=== PATIENT | male | born 1950 | race Caucasian/White ===

== ENCOUNTER 2024-04-24 08:11 | Day surgery (SDC) | payer MEDICARE, OTHER ==
[2024-04-24] VITALS (11 sets, daily range): BP systolic 125–147; BP diastolic 62–93
[~2024-04-24] VITALS: Ht 182.9 cm; Wt 124.0 kg
[~2024-04-24 08:11] MED LIST: ALLO100 PO; ATOR40TA PO; Aspir 8181 MG PO; CLOP75 PO; COLCHICINE0.6 MG PO; DYAZIDE 37.5-21 EACH PO; LEVSOD25 PO; LISI5 PO; SOTO80 PO
[2024-04-24] MEDS ORDERED: NS 250 ML IV ONE (08:41)
[2024-04-24] MEDS ORDERED: Heparin Sodium 1000 Units/ML 10ML MDV ONE ×2 (08:42→09:08)
[2024-04-24] MEDS ORDERED: NS 500 ML IV ONE (08:42)
[2024-04-24] MEDS ORDERED: NS 1,000 ML IV ONE ×2 (08:42→09:02)
[2024-04-24] MEDS ORDERED: Nitroglycerin 2 MG/20 ML BTL ONE (08:43)
[2024-04-24] MEDS ORDERED: Midazolam HCl 1MG / ML 2ML Vial ONE ×2 (09:01→10:55)
[2024-04-24] MEDS ORDERED: FentaNYL Citrate 50 MCG/ML 2 ML Injection ONE ×2 (09:02→10:55)
[2024-04-24 09:06] LABS: BASOPHILS ABSOLUTE AUTO 0.03 K/mm3 (0.00-0.23); BASOPHILS PERCENT AUTO 0 % (0-2); EOSINOPHILS ABSOLUTE AUTO 0.13 K/mm3 (0.00-0.68); EOSINOPHILS PERCENT AUTO 1 % (0-6); Hematocrit 33.7 % (37.0-53.0); Hemoglobin 11.6 g/dL (13.5-17.5); IMMATURE GRAN ABSOLUTE AUTO 0.06 K/mm3 (0.00-0.10); IMMATURE GRAN PERCENT AUTO 1 % (0-1); LYMPHOCYTES ABSOLUTE AUTO 2.04 K/mm3 (0.84-5.20); LYMPHOCYTES PERCENT AUTO 20 % (21-46); MONOCYTES ABSOLUTE AUTO 0.98 K/mm3 (0.16-1.47); MONOCYTES PERCENT AUTO 10 % (4-13); Mean Corpuscular HGB 29.7 pg (26.0-34.0); Mean Corpuscular HGB Conc 34.4 g/dL (31.5-36.5); Mean Corpuscular Volume 86 fL (80-100); Mean Platelet Volume 10.4 fL (9.1-12.4); NEUTROPHILS ABSOLUTE AUTO 7.01 K/mm3 (1.96-9.15); NEUTROPHILS PERCENT AUTO 68 % (41-73); Platelet Count 200 K/mm3 (150-400); RDW Coefficient Variation 15.1 % (11.7-14.2); RDW Standard Deviation 47.2 fL (35.1-46.3); Red Blood Cell Count 3.91 M/mm3 (4.30-5.90); White Blood Cell Count 10.25 K/mm3 (4.00-11.30)
[2024-04-24 09:19] LABS: International Normalized Ratio 1.11; Prothrombin Time Results 11.8 Sec (9.7-11.5)
[2024-04-24 09:22] LABS: Bun/Creatinine Ratio 21.3 (12.0-20.0); Calcium, Blood 9.9 mg/dL (8.5-10.1); Creatinine, Blood 1.36 mg/dL (0.60-1.20); Potassium, Blood 4.4 mmol/L (3.5-5.5)
[2024-04-24] MEDS ORDERED: Protamine Sulfate 50 MG Amp ONE (13:07)
--- NOTE | 2024-04-24 14:00 | NUR ---
R FEMORAL SHEATH PULLED BY DR DEAN. PRESSURE HELD FOR 20MIN. NEG BLEEDING OR SWELLING POST SHEATH PULL.
--- NOTE | 2024-04-24 15:35 | NUR ---
ASSUMED CAR OF PT. PT IS AWAKE AND CONVERSING APPROPRIATELY; DENIES PAIN. MONITOR PACED 60, B/P 128/72, SPO2 97% RA. R GROIN NO SWELLING/HEMATOMA, TEGADERM DRSG INTACT.
--- NOTE | 2024-04-24 15:50 | NUR ---
PT'S L FOOT REWRAPPED WITH KERCHICAX DRSG, HAS APPT WITH WOUND CARE TOMORROW.
--- NOTE | 2024-04-24 16:15 | NUR ---
PT'S HOB ELEVATED TO 30 DEGREES, SITE REMAINS UNCHANGED.
--- NOTE | 2024-04-24 17:05 | NUR ---
PT DRESSED SELF WITHOUT ISSUE, SITE UNCHANGED; IV REMOVED-CANNULA INTACT.
--- NOTE | 2024-04-24 17:13 | NUR ---
PT AND SISTER RECEIVED DISCHARGE INSTRUCTIONS, MED LIST AND AFTER CARE INSTRUCTIONS; VERBALIZED GOOD UNDERSTANDING. PT LEFT FACILITY VIA W/C, CONDITION STABLE.
== END 2024-04-24 23:09 | disposition home or self-care (01) ==
LOC: MHTC 08:11
PROVIDERS: Student in an Organized Health Care Education/Training Program
DX: I70.245 Atherosclerosis of native arteries of left leg with ulceration of other part of foot (principal); L97.529 Non-pressure chronic ulcer of other part of left foot with unspecified severity; S81.802A Unspecified open wound, left lower leg, initial encounter; I10 Essential (primary) hypertension; E78.5 Hyperlipidemia, unspecified; I25.10 Atherosclerotic heart disease of native coronary artery without angina pectoris; Z87.891 Personal history of nicotine dependence; Z88.2 Allergy status to sulfonamides; Z79.82 Long term (current) use of aspirin; Z79.890 Hormone replacement therapy; Z79.02 Long term (current) use of antithrombotics/antiplatelets; Z79.899 Other long term (current) drug therapy
CPT/HCPCS: 76937; 80048; 85025; 85347; 85610; 99152; 99153; C1725; C1760; C1769; C1887; C1894; J1644; J2250; J2720; J3010; J7030; J7040; J7050; Q9967

== ENCOUNTER 2024-05-01 07:44 | Day surgery (SDC) | payer MEDICARE, OTHER ==
[~2024-05-01] VITALS: Ht 182.9 cm; Wt 124.0 kg
[2024-05-01] VITALS (8 sets, daily range): BP systolic 111–137; BP diastolic 55–75
[~2024-05-01 07:44] MED LIST changes: +Heparin Sodium 1000 Units/ML 10ML MDV ONE; +NS 1,000 ML IV ONE; +NS 500 ML IV ONE; +Nitroglycerin 2 MG/20 ML BTL ONE
[2024-05-01] MEDS ORDERED: FentaNYL Citrate 50 MCG/ML 2 ML Injection ONE (08:41)
[2024-05-01] MEDS ORDERED: NS 1,000 ML IV ONE (08:41)
[2024-05-01] MEDS ORDERED: Midazolam HCl 1MG / ML 2ML Vial ONE (08:41)
[2024-05-01] MEDS ORDERED: Heparin Sodium 1000 Units/ML 10ML MDV ONE (08:42)
[2024-05-01] MEDS ORDERED: Verapamil HCL 2.5 MG/ML 2ML Injection ONE (10:34)
[2024-05-01] MEDS ORDERED: Protamine Sulfate 50 MG Amp ONE (11:52)
--- NOTE | 2024-05-01 12:57 | NUR ---
pt back to recovery from lab. pt a&o. family at bedside. groins site soft and non-tender per pt. no bleeding noted. pedal site soft and non-tender per pt. no bleeding noted. dp pulse found in l foot via doppler. dr de la cruz discussed findings and plan of care with pt.
--- NOTE | 2024-05-01 14:33 | NUR ---
GROIN SITE SOFT AND NON-TENDER PER PT. NO BLEEDING NOTED. PT SITTING UP ON SIDE OF BED.
--- NOTE | 2024-05-01 14:34 | NUR ---
PEDAL SITE SOFT AND NON-TENDER PER PT. NO BLEEDING NOTED.
--- NOTE | 2024-05-01 14:52 | NUR ---
pt given dc instructions and verbalized understanding. iv out. pt changed. groin site soft and non-tender per pt. no bleeding noted. pedal site soft and non-tender per pt. no bleeding noted. foot dressed with kerlex. pt taken [facility] [place]. family to drive pt home.
== END 2024-05-01 15:10 | disposition home or self-care (01) ==
LOC: MHTC 07:44
DX: I70.222 Atherosclerosis of native arteries of extremities with rest pain, left leg (principal); L97.529 Non-pressure chronic ulcer of other part of left foot with unspecified severity; I10 Essential (primary) hypertension; E78.5 Hyperlipidemia, unspecified; I25.10 Atherosclerotic heart disease of native coronary artery without angina pectoris; Z79.82 Long term (current) use of aspirin; Z79.899 Other long term (current) drug therapy; Z87.891 Personal history of nicotine dependence; Z88.2 Allergy status to sulfonamides; Z89.429 Acquired absence of other toe(s), unspecified side
CPT/HCPCS: 36140; 36245; 37228; 37252; 75710; 76937; 99152; 99153; C1725; C1753; C1760; C1769; C1887; C1894; J1644; J2250; J2720; J3010; J7030; J7050; Q9967